=== PATIENT | female | born 1945 | race Caucasian/White ===

== ENCOUNTER 2016-12-23 08:33 | Day surgery (SDC) | payer MEDICARE ==
--- NOTE | ~2016-12-23 | EGD ---
EGD REPORT [facility] [address] 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 Estimated blood loss: None. Procedure: Pre-Anesthesia Assessment: - ASA Grade Assessment: II - A patient with mild systemic disease. After obtaining informed consent, the endoscope was passed under direct vision. Throughout the procedure, the patient's blood pressure, pulse, and oxygen saturations were monitored continuously. The Endoscope was introduced through the anus and advanced to the rectosigmoid junction for ultrasound. The CF [id number] was introduced through the anus and advanced to the rectosigmoid junction for ultrasound. The GIF [id number] was introduced through the anus and advanced to the rectum for ultrasound. Findings: Endoscopic Finding : One 5 mm nodule was found at the anus. The polyp was removed with a hot snare. Resection and retrieval were complete. Verification of patient identification for the specimen was done. Estimated blood loss was minimal. No additional abnormalities were found on retroflexion. The exam was otherwise normal throughout the examined colon. Endosonographic Finding : A hypoechoic nodule was found in the anal canal. The lesion was non-circumferential. The endosonographic borders were well-defined. It appeared to be arising from the deep mucosa. Because the etiology was not obvious, this was removed with snare following the EUS.The mass measured 4 mm (in maximum length) by 3 mm (in maximum width). The rectum was normal. The perirectal space was normal. Impression: - Nodule at the anus. - A mass was found in the anal canal. EGD REPORT [address] [address] NAME: AUBREE DIAZ : [birth year] STATUS : REG [facility]#: [id number] AGE: 71 ADM/REG DATE : 12/23/16 MR#: [id number] REPORT SERV DATE: 12/23/16 DICTATED BY: JAVIER CASTRO DATE: 12/23/16 REPORT STATUS : Draft TRANSCRIBED BY: [employer] DATE: 12/23/16 - Endosonographic images of the rectum were unremarkable. - Endosonographic images of the perirectal space were unremarkable. Recommendation: - Return to previous diet. - Continue present medications. - Await path results. - Return to referring physician. Procedure Code(s): --- Professional --- 16057, Sigmoidoscopy, flexible; with endoscopic ultrasound examination 07318, Sigmoidoscopy, flexible; with removal of tumor(s), polyp(s), or other lesion(s) by snare technique Diagnosis Code(s): --- Professional --- K62.89, Other specified diseases of anus and rectum CPT copyright 2013 [employer]. All rights reserved. The codes documented in this report are preliminary and upon hims coder review may be revised to meet current compliance requirements. JAVIER CASTRO, 12/23/2016 9:44 AM Number of Addenda: 0 Note Initiated On: 12/23/2016 9:12 AM Scope Withdrawal Time 0 hours 0 minutes 0 seconds
[~2016-12-23 08:33] MED LIST: ACET500CAP PO; ADVIL PO; DIOV80 PO; PREV15 PO
== END 2016-12-23 23:59 | disposition home or self-care (01) ==
LOC: DMU 08:33
PROVIDERS: Internal Medicine Gastroenterology
PROC: 0DBQ8ZZ Excision of Anus, Via Natural or Artificial Opening Endoscopic (ICD-10-PCS; principal; 2016-12-23 10:30)
DX: D12.9 Benign neoplasm of anus and anal canal (principal); I10 Essential (primary) hypertension; K21.9 Gastro-esophageal reflux disease without esophagitis; M19.90 Unspecified osteoarthritis, unspecified site; K62.89 Other specified diseases of anus and rectum; Z88.0 Allergy status to penicillin; Z98.51 Tubal ligation status; Z79.899 Other long term (current) drug therapy
CPT/HCPCS: 76872; 88305; C1725